=== PATIENT | female | born 1990 | race Caucasian/White ===

== ENCOUNTER 2016-09-03 04:36 | Observation (INO) ==
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
[2016-09-03 05:31] LABS: MANUAL DIFF NEEDED? NO
[2016-09-03 05:32] LABS: BASO% 0.5 % (0.0-0.8); EOS# 0.27 X1000 (0.0-0.7); EOS% 3.6 % (0.0-10.0); HEMOGLOBIN 12.4 g/dL (12.0-16.0); IMM GRAN# 0.06 X1000 (0.0-0.04); IMM GRAN% 0.8 % (0.0-0.5); LYMPH# 1.47 X1000 (1.2-3.4); LYMPH% 19.7 % (20.5-51.1); MCH 30.7 PG (27-31); MCHC 32.6 g/dL (33-37); MCV 94.1 FL (81-99); MONO# 0.48 X1000 (0.11-0.59); MONO% 6.4 % (1.7-9.3); MPV 11.4 FL (7.4-10.4); PLT 173 X1000 (130-400); RBC 4.04 XMIL (4.2-5.4)
[2016-09-03 06:26] LABS: AGAP 20; ALBUMIN 4.2 g/dL (3.5-5.0); ALKALINE PHOSPHATASE 95 U/L (32-104); BUN 7 mg/dL (8-22); CHLORIDE 107 mmol/L (98-107); COSMO 280; GOT 31 U/L (10-30); GPT 27 U/L (10-36); POTASSIUM 3.5 mmol/L (3.5-5.1); SODIUM 142 mmol/L (136-145); TCO2 15 mmol/L (25-35); TOTAL BILIRUBIN 0.25 mg/dL (0.20-1.00); TOTAL PROTEIN 6.9 g/dL (6.3-8.3)
[2016-09-03] MEDS ORDERED: ATIVAN ONE (06:52)
[2016-09-03] MEDS ORDERED: ATIVAN IV ONE (06:55)
[2016-09-03] MEDS ORDERED: KEPPRA 500 MG in NS 100 ML IV ONE (07:58)
[2016-09-03] MEDS ORDERED: M.V.I.-12 10 ML, FOLIC ACID 1 MG, MAGNESIUM SULFATE 1 GM, THIAMINE 100 MG in NS 1,000 ML IV ONE (08:02)
--- NOTE | 2016-09-03 08:47 | Diag Imaging Result Doc PS360 ---
HEAD W/O CONTRAST - 09/03/2016 INDICATION: sz, headache TECHNIQUE: A CT dose reduction protocol was used. COMPARISON: 10/12/2015 FINDINGS: The ventricles and sulci are normal in size and contour. No intracranial mass or hemorrhage. The skull is intact. The sinuses mastoids and middle ears are clear. IMPRESSION: Negative exam. Electronically signed by Shoaib Vyas 09/03/2016 8:45 AM
[2016-09-03] MEDS ORDERED: TOPAMAX PO ONE (09:35)
[2016-09-03] MEDS ORDERED: NS 1,000 ML IV SCH (10:06)
[2016-09-03] MEDS ORDERED: ZOFRAN IV PRN (10:06)
[2016-09-03] MEDS ORDERED: TYLENOL PO PRN (10:06)
[2016-09-03 10:21] LABS: URINE CULTURE NEEDED? NO; URINE MICRO REVIEW NEEDED? NO; URINE SOURCE CLEAN CATCH
[2016-09-03 10:27] LABS: BILIRUBIN URINE NEGATIVE (NEGATIVE); BLOOD URINE NEGATIVE (NEGATIVE); COLOR YELLOW; GLUCOSE URINE NEGATIVE (NEGATIVE); LEUKOCYTES URINE NEGATIVE (NEGATIVE); NITRITE URINE NEGATIVE (NEGATIVE); PH URINE 5.5; PROTEIN URINE NEGATIVE (NEGATIVE); SP GRAVITY URINE 1.017; TURBIDITY URINE CLEAR (CLEAR); UROBILINOGEN URINE NORMAL (NORMAL)
[2016-09-03] MEDS ORDERED: ROBAXIN PO PRN (10:28)
[2016-09-03] MEDS ORDERED: ZANAFLEX PO PRN (10:28)
[2016-09-03 10:29] LABS: UR EPITHELIAL CELLS <10 /HPF (<10); URINE BACTERIA NEGATIVE /HPF; URINE RBC <10 /HPF (<10); URINE WBC <10 /HPF (<10)
[2016-09-03 10:42] LABS: UR AMPHETAMINES QUAL PRESUMPTIVE POSITIVE (NONE DETECT); UR BARBITUATES QUAL NONE DETECTED (NONE DETECT); UR BENZODIAZEPIN QUAL PRESUMPTIVE POSITIVE (NONE DETECT); UR CANNABINOIDS QUAL NONE DETECTED (NONE DETECT); UR COCAINE QUAL NONE DETECTED (NONE DETECT); UR METHADONE QUAL NONE DETECTED (NONE DETECT); UR OPIATES QUAL NONE DETECTED (NONE DETECT); UR OXYCODONE QUAL NONE DETECTED (NONE DETECT); UR PCP QUAL NONE DETECTED (NONE DETECT)
[2016-09-03] MEDS: ADDERALL PO SCH ×2 (10:56→11:14)
[2016-09-03] MEDS: ABILIFY PO SCH (10:56)
[2016-09-03] MEDS: PRILOSEC PO SCH (10:59)
[2016-09-03] MEDS: TOPAMAX PO SCH ×2 (10:59→20:51)
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
[2016-09-03] MEDS: ATIVAN IV PRN ×2 (17:32→23:02)
[2016-09-03] MEDS: TENEX PO SCH (20:50)
[2016-09-03] MEDS: KLONOPIN PO PRN (22:17)
[2016-09-04 05:44] LABS: MANUAL DIFF NEEDED? NO
[2016-09-04 05:54] LABS: BASO% 0.6 % (0.0-0.8); EOS# 0.17 X1000 (0.0-0.7); EOS% 2.7 % (0.0-10.0); HEMATOCRIT 37.8 % (37.0-47.0); HEMOGLOBIN 12.5 g/dL (12.0-16.0); IMM GRAN# 0.02 X1000 (0.0-0.04); IMM GRAN% 0.3 % (0.0-0.5); LYMPH# 1.62 X1000 (1.2-3.4); LYMPH% 25.4 % (20.5-51.1); MCH 31.3 PG (27-31); MCHC 33.1 g/dL (33-37); MCV 94.5 FL (81-99); MONO# 0.41 X1000 (0.11-0.59); MONO% 6.4 % (1.7-9.3); NEUT% 64.6 % (42.2-75.2); PLT 195 X1000 (130-400)
[2016-09-04 05:58] LABS: INR 0.96
[2016-09-04 06:16] LABS: AGAP 13; ALBUMIN 3.9 g/dL (3.5-5.0); ALKALINE PHOSPHATASE 89 U/L (32-104); BUN 9 mg/dL (8-22); CALCIUM 8.6 mg/dL (8.8-10.2); CHLORIDE 111 mmol/L (98-107); COSMO 281; GOT 19 U/L (10-30); GPT 24 U/L (10-36); MAGNESIUM 2.3 mg/dL (1.5-2.7); SODIUM 142 mmol/L (136-145); TCO2 18 mmol/L (25-35); TOTAL BILIRUBIN 0.39 mg/dL (0.20-1.00); TOTAL PROTEIN 6.3 g/dL (6.3-8.3)
[2016-09-04] MEDS: PRILOSEC PO SCH (06:17)
[2016-09-04] MEDS: ABILIFY PO SCH (08:53)
[2016-09-04] MEDS: ADDERALL PO SCH ×2 (08:53→11:30)
[2016-09-04] MEDS ORDERED: KEPPRA PO SCH (09:00)
[2016-09-04] MEDS: TOPAMAX PO SCH ×2 (09:03→20:45)
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
[2016-09-04] MEDS: TRILEPTAL PO SCH ×2 (11:09→20:45)
[2016-09-04] MEDS: TENEX PO SCH (20:45)
[2016-09-04] MEDS: KLONOPIN PO PRN (22:24)
[2016-09-05 05:35] LABS: AGAP 14; BUN 10 mg/dL (8-22); CALCIUM 8.8 mg/dL (8.8-10.2); CHLORIDE 109 mmol/L (98-107); COSMO 278; POTASSIUM 3.9 mmol/L (3.5-5.1); SODIUM 140 mmol/L (136-145); TCO2 17 mmol/L (25-35)
[2016-09-05] MEDS: PRILOSEC PO SCH (06:11)
--- NOTE | 2016-09-05 06:26 | EKG Report ---
Test Performed on : 09/03/2016 11:21:32 AM Test Reason : recent seizures Blood Pressure : / mmHG Vent. Rate : 095 BPM Atrial Rate : 095 BPM P-R Int : 134 ms QRS Dur : 088 ms QT Int : 408 ms P-R-T Axes : 059 044 058 degrees QTc Int : 512 ms Normal sinus rhythm. Nonspecific T wave abnormality Prolonged QT Abnormal ECG When compared with ECG of 28-DEC-2015 15:32, Vent. rate has increased BY 32 BPM QT has lengthened Confirmed by Himanshu BAUER, Jemal Hurtado ([id number]) on 09/06/2016 2:15:10 PM
[2016-09-05] MEDS: TOPAMAX PO SCH (08:31)
[2016-09-05] MEDS: TRILEPTAL PO SCH (08:31)
[2016-09-05] MEDS: ADDERALL PO SCH ×2 (08:31→11:29)
[2016-09-05] MEDS: ABILIFY PO SCH (09:15)
[2016-09-05 11:42] VITALS: BP 109/74
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
--- NOTE | 2016-09-06 11:52 | DISCHARGE SUMMARY ---
ADMISSION DATE: 09/03/2016 DISCHARGE DATE: 09/05/2016 FINAL DISCHARGE DIAGNOSES: 1. Seizure disorder. 2. Migraine headaches. 3. Posttraumatic stress disorder. 4. Narcolepsy. CONSULTATIONS DURING THIS HOSPITAL STAY: Neurology consultation with Dr. Yanez. HOSPITAL COURSE: Ms. Mcneil is a 25-year-old female with a history of known seizure disorder. She was brought to the ER with acute complaint of seizures. The patient was admitted to the hospitalist service and her home medications were resumed. Neurology was consulted and started the patient on Trileptal. After initiating the Trileptal, the patient had no further seizure activity. It was recommended by the neurologist that the patient follow up with her primary neurologist in [place], Dr. Morgan. The patient was also advised not to drive until directed by her neurologist. DISCHARGE MEDICATIONS: 1. Trileptal 600 mg p.o. twice a day. 2. Topamax 20 mg p.o. twice a day. 3. Tenex 1 mg p.o. at bedtime. 4. Zanaflex 4 mg p.o. twice a day p.r.n. 5. Abilify 2 mg oral every morning. 6. Adderall 10 mg p.o. twice a day. 7. Methocarbamol 750 mg p.o. every 8 hours p.r.n. as needed. 8. Clonazepam 0.5 mg p.o. daily p.r.n. for anxiety. DISCHARGE DIET: Regular diet. ACTIVITY: As tolerated. FOLLOWUP INSTRUCTIONS: The patient has been advised to follow up with Dr. Morgan in [place] in the next 2-3 days. cc: MD Blanca Cm MD
== END 2016-09-05 14:12 | disposition home or self-care (01) ==
LOC: ED 04:36 → 3S 04:37 → OBSVTOIN 04:37 → SUATTDRO 04:37 → INTOOBSV 04:37 → 3S 17:53
PROVIDERS: ATTEND Internal Medicine